=== PATIENT | male | born 1985 | race Caucasian/White ===

== ENCOUNTER 2019-07-10 15:54 | Emergency (ER) | payer OTHER, SELFPAY ==
[2019-07-10 16:25] VITALS: BP 101/60; PULSE 80; RESP 16; TEMP 37.7; O2SAT 100
--- NOTE | 2019-07-10 17:33 | ED.GENADULT ---
HPI - General Adult General Chief complaint: Unspecified Stated complaint: body aches, fever Time Seen by Provider: 07/10/19 17:27 Source: patient Mode of arrival: ambulatory Limitations: no limitations History of Present Illness HPI narrative: This is a 33-year-old male that presents emergency department for cold symptoms since yesterday. Reports fever, myalgias, cough and congestion. Denies shortness of breath. Related Data Allergies Allergy/AdvReac Type Severity Reaction Status Date / Time No Known Allergies Allergy Verified 07/10/19 17:28 Review of Systems Review of Systems: Narrative: CONSTITUTIONAL: Reports fever CARDIOVASCULAR: Reports chest pain. Denies edema. RESPIRATORY: Reports cough. Denies dyspnea. MUSCULOSKELETAL: Reports myalgias. All systems reviewed & are unremarkable except as noted in HPI and below PMFSH Social History Social History (Updated 07/10/19 @ 17:35 by Maria E Desai PA-C) Smoking status: Never smoker Substance use: never Gender identity (if verbalized by the patient): Male Exam Narrative: Exam Narrative: GENERAL: Well-appearing, well-nourished, and in no acute distress. HEAD: Normocephalic, atraumatic. EYES: EOMI. ENT: Turbinates swollen and pale. Mucous membranes moist. Oropharynx without tonsillar hypertrophy exudate or other lesions. Bilateral TMs pearly english non-bulging NECK: Supple. No adenopathy or masses. CHEST: Clear to auscultation. No respiratory distress. No wheezes rales or rhonchi. Tender to palpation of anterior mid chest wall HEART: Regular rate and rhythm. No murmur heard. Normal peripheral pulses. BACK: Tender to palpation of lumbar paraspinal musculature EXTREMITIES: Normal range of motion. No edema. SKIN: Warm, dry, no rash. NEURO: No focal deficits. Alert and oriented x3. PSYCH: Normal mood and affect Course Vital Signs Vital signs: Vital Signs Temperature 99.8 F H 07/10/19 16:25 Pulse Rate 80 07/10/19 16:25 Respiratory Rate 16 07/10/19 16:25 Blood Pressure 101/60 07/10/19 16:25 Pulse Oximetry 100 07/10/19 16:25 Temperature 99.8 F H 07/10/19 16:25 Pulse Rate 80 07/10/19 16:25 Respiratory Rate 16 07/10/19 16:25 Blood Pressure 101/60 07/10/19 16:25 Pulse Oximetry 100 07/10/19 16:25 Medical Decision Making MDM Narrative Medical decision making narrative: Patient presents emergency department for cold symptoms since yesterday. Patient is influenza B positive. He is within treatment window and would like to start Tamiflu. Patient was instructed on symptomatic care as well. He is to follow-up with primary care doctor. He was given warnings to return to the ER Vital Signs Vital Signs: Vital Signs Temperature 99.8 F H 07/10/19 16:25 Pulse Rate 80 07/10/19 16:25 Respiratory Rate 16 07/10/19 16:25 Blood Pressure 101/60 07/10/19 16:25 Pulse Oximetry 100 07/10/19 16:25 Temperature 99.8 F H 07/10/19 16:25 Pulse Rate 80 07/10/19 16:25 Respiratory Rate 16 07/10/19 16:25 Blood Pressure 101/60 07/10/19 16:25 Pulse Oximetry 100 07/10/19 16:25 Lab Data Lab results reviewed: Yes I reviewed the patient's lab results. Labs: Influenza A Screen Negative Reference Range: Negative Influenza B Screen Positive Reference Range: Negative Critical Care Time Critical Care Time Critical Care Time: No Discharge Plan Discharge Clinical Impression: Influenza B Patient Disposition: Home, Self-Care Condition: Stable Instructions: Influenza (ED) Additional Instructions: Return to the emergency department for worsening symptoms, or any other concerns Remain well-hydrated, get plenty of rest, no work or school for several days. Take Tamiflu as prescribed. Take Tylenol or Motrin [id number] for pain as needed. Flonase for nasal congestion. Zyrtec for runny nose. Lozenges or Chloraseptic spray for sore throat. Follow up with your p
== END 2019-07-10 18:48 | disposition home or self-care (01) ==
PROVIDERS: Emergency Provider Emergency Medicine; PCP Emergency Medicine
DX: J10.1 Influenza due to other identified influenza virus with other respiratory manifestations (principal)
CPT/HCPCS: 87804; 99283

== ENCOUNTER 2023-01-28 09:26 | Outpatient (CLI) | payer OTHER, SELFPAY ==
--- NOTE | ~2023-01-28 | XR_ITS ---
Clinical Indication: Cough PA and lateral views of the chest: Comparison: 06/16/2017 Findings: The lungs are clear, without evidence of focal consolidation or pleural effusion. Cardiome diastinal silhouette is within normal limits. Bones and soft tissues are unremarkable. Impression: Normal chest. Reviewed, dictated and finalized at location . Impression: Normal chest.
--- NOTE | ~2023-01-28 | XR_ITS ---
Thoracic spine: Clinical Indication: Back pain AP and lateral views were performed. No fracture is seen. There is normal alignment of the vertebrae. The intervertebral disc spaces appe ar normal. Paravertebral soft tissues appear normal. Impression: No significant abnormalities noted. Reviewed, dictated and finalized at [facility]. Impression: No significant abnormalities noted.
[2023-01-28 12:11] LABS: Hematocrit 45.3 % (42.0-52.0); Hemoglobin 15.4 g/dL (14.0-18.0); Mean Corpuscular Hemoglobin 30.6 pg (26-34); Mean Corpuscular Volume 89.9 fl (80-100); Mean Platelet Volume 11.4 fl (7.4-10.4); Platelet Count Result 236 k/mm3 (150-375); Red Blood Count 5.04 M/mm3 (4.6-6.20); Red Cell Distribution Width 12.4 % (11.5-14.5); White Blood Count 6.3 K/mm3 (4.5-10.0)
[2023-01-28 12:29] LABS: Alanine Aminotransferase 33 U/L (6-50); Albumin Level 4.6 g/dL (3.5-5.1); Alkaline Phosphatase 71 U/L (38-126); Anion Gap 10 mmol/L (8-16); Aspartate Amino Transferase 33 U/L (17-59); Bilirubin,Total 0.8 mg/dL (0.2-1.3); Blood Urea Nitrogen 18 mg/dL (9-20); Calcium 9.3 mg/dL (8.4-10.2); Carbon Dioxide 27 mmol/L (22-30); Chloride 103 mmol/L (98-107); Estimated Glomerular Filt Rate > 60; Glucose 81 mg/dL (65-110); Potassium 3.9 mmol/L (3.4-5.0); Sodium 140 mmol/L (137-145)
[2023-01-28 12:46] LABS: Vitamin D 25 Hydroxy 33.5 ng/mL
== END 2023-01-28 09:27 | disposition home or self-care (01) ==
PROVIDERS: PCP Emergency Medicine; Visit Provider Emergency Medicine
DX: E55.9 Vitamin D deficiency, unspecified (principal); R05.9 Cough, unspecified; M25.512 Pain in left shoulder
CPT/HCPCS: 36415; 71046; 72072; 80053; 82306; 85027

== ENCOUNTER → 2023-11-05 10:31 | Outpatient (CLI) | payer OTHER, SELFPAY ==
--- NOTE | ~2023-11-05 | XR_ITS ---
Cervical Spine: AP, lateral, open-mouth views Clinical History: Pain Findings: The normal lordotic curve is maintained. The vertebral bodies and posterior elements appea r intact. The intervertebral disc spaces are well maintained. Pre-vertebral soft tissues are unremar kable. Impression: No significant abnormality is seen. Reviewed, dictated and finalized at [facility]. Impression: No significant abnormality is seen.
--- NOTE | ~2023-11-05 | XR_ITS ---
Thoracic spine: Clinical Indication: Back pain AP and lateral views were performed. No fracture is seen. There is normal alignment of the vertebrae. The intervertebral disc spaces appe ar normal. Paravertebral soft tissues appear normal. Impression: No significant abnormalities noted. Reviewed, dictated and finalized at [facility]. Impression: No significant abnormalities noted.
== END ==
PROVIDERS: PCP Emergency Medicine; Visit Provider Emergency Medicine
DX: M54.2 Cervicalgia (principal); M54.6 Pain in thoracic spine
CPT/HCPCS: 72050; 72072